=== PATIENT | female | born 1985 | race Caucasian/White ===

== ENCOUNTER 2023-12-23 13:26 | Outpatient (CLI) | payer OTHER | END 2023-12-23 13:27 | disposition home or self-care (01) | LOC: BICRAD 13:26 | PROVIDERS: ATTEND Family Medicine | DX: M06.862 Other specified rheumatoid arthritis, left knee (principal); M13.841 Other specified arthritis, right hand; M25.562 Pain in left knee; M79.641 Pain in right hand; M19.041 Primary osteoarthritis, right hand; M25.431 Effusion, right wrist; M22.2X2 Patellofemoral disorders, left knee ==